=== PATIENT | male | born 1985 | race African-American/Black ===

== ENCOUNTER 2017-11-23 18:50 | Inpatient (IN) | payer OTHER ==
--- NOTE | 2017-11-23 19:43 | ED ---
Chest Pain HPI - General Chief Complaint: Chest Pain Stated Complaint: chest pain Time Seen by Provider: 11/23/17 19:33 Source: patient Mode of arrival: EMS Limitations: no limitations - History of Present Illness Initial Comments: This 31-year-old male presents with a complaint of some chest pain on his left side. He states that this feels like a burning type sensation. It is worse with touch or deep inspiration. He denies any injuries to this area. He states that this started approximately 2 hours prior to arrival. He also relates that he has some left lower abdominal pain which feels like a prior hernia which started approximately 10 hours prior to arrival. It is associated with some nausea but no vomiting or diarrhea. 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 He also states that he had a mild heart attack when he has 19 but he did not receive any cardiac stents or further intervention at that time. He presents via EMS and received 3 nitroglycerin sublingual and aspirin prior to arrival without any significant relief. No other complaints or modifying factors. - Related Data Home Medications Medication Instructions Recorded Confirmed Gabapentin [Neurontin] 300 mg PO TID 11/23/17 11/23/17 LORazepam [Ativan] 1 mg PO Q4H PRN 11/23/17 11/23/17 Allergies Allergy/AdvReac Type Severity Reaction Status Date / Time morphine Allergy Unknown Verified 11/23/17 19:09 Review of Systems ROS Statement: Those systems with pertinent positive or pertinent negative responses have been documented in the HPI. ROS Other: All systems not noted in ROS Statement are negative. Past Medical History Past Medical History: No Reported History, Myocardial Infarction ([place]) Additional Past Medical History / Comment(s): tetrology of fallot History of Any Multi-Drug Resistant Organisms: None Reported Past Surgical History: Hernia Repair Additional Past Surgical History / Comment(s): transposition of the great arteries repair, elbo surgery Past Psychological History: Depression Smoking Status: Current every day smoker Past Alcohol Use History: Daily Past Drug Use History: None Reported General Exam - General Exam Comments Initial Comments: GENERAL: The patient is well nourished and well hydrated. VITAL SIGNS: Heart rate, blood pressure, respiratory rate reviewed as recorded in nurse's notes. EYES: Pupils are round and reactive. Extraocular movements are intact. No conjunctival / lid redness or swelling. ENT: No external evidence of injury, swelling, or ecchymosis. Airway is patent. Throat is clear. NECK: Nontender. No swelling or evidence of injury. No subcutaneous emphysema. Trachea is midline. No thyroid mass. HEART: Regular rate and rhythm. Good peripheral pulses. LUNGS/CHEST: Breath sounds clear and equal bilaterally. No rales, rhonchi, or wheezes. No ecchymosis, subcutaneous emphysema. There is tenderness upon palpation of the left chest wall. ABDOMEN: There is tenderness noted to the left lower abdomen. There is no peritoneal signs. Abdomen is nondistended. No palpable masses or organomegaly. No peritoneal signs. No abdominal wall swelling or ecchymosis. EXTREMITIES: No extremity tenderness. Normal muscle tone and function. No thoracolumbar tenderness. NEUROLOGIC: Sensation is grossly intact. Cranial nerve exam reveals face is symmetrical, tongue is midline, speech is clear. SKIN: No abrasions or ecchymosis is noted. No induration or masses noted. PSYCHIATRIC: Alert and oriented. Appropriate behavior and judgment. Limitations: no limitations Course Vital Signs 11/23/17 11/23/17 11/23/17 18:51 19:35 20:26 Temperature 97.8 F Pulse Rate 89 87 83 Respiratory 18 18 18 Rate Blood Pressure 134/85 132/85 159/103 O2 Sat by Pulse 100 99 99 Oximetry 11/23/17 11/23/17 11/24/17 21:36 22:52 00:11 Temperature 98.2 F 97.2 F L Pulse Rate 78 85 84 Respiratory 18 18 18 Rate Blood Pressure 172/113 158/101 158/105 O2 Sat by Pulse 100 99 98 Oximetry Chest Pain [facility] The patient was seen and examined. All diagnostics were reviewed. The EKG shows a sinus rhythm at 85. There is a first-degree AV block. There is some T- wave inversions noted primarily in the lateral leads as well as V3. The patient has some flattened T waves as well. There is no ST elevation. The patient has a UT interval of 274, QRS duration of 112, and the QTC intervals 456. Patient received some Toradol in the ER. He also receives some Zofran for his nausea. The laboratory is reviewed. The patient also had a computed tomography scan of the abdomen and pelvis and the radiologist thinks that there is evidence of diverticulitis noted in the left lower abdomen. The patient is started on Flagyl as well as Levaquin. He also has a CT done of the thorax and this does show evidence of a 4.8 cm thoracic aortic aneurysm. There is no evidence of dissection or pulmonary embolism noted. The patient does receive some Toradol as well as some fentanyl for his pain. He is feeling somewhat improved on recheck. It is felt as though he would benefit from admission to the hospital for further evaluation of his Cardiologic symptoms and treatment of his diverticulitis. He is agreeable and case is discussed with internal medicine and they are agreeable with admission. Disposition Clinical Impression: Chest pain, Nausea, Abdominal pain, History of tetralogy of Fallot, Diverticulitis, Thoracic aortic aneurysm, Unstable angina pectoris Disposition: ADMITTED IP TO THIS HOSP Condition: Fair Time of Disposition: 00:23 Decision Date: 11/24/17 Decision Time: 00:23
[2017-11-23 20:15] LABS: Basophils % (A) 0 %; Eosinophils # (A) 0.4 k/uL (0-0.7); Eosinophils % (A) 4 %; HCT 37.1 % (39.0-53.0); HGB 12.5 gm/dL (13.0-17.5); Lymphocytes % (A) 11 %; MCH 34.4 pg (25.0-35.0); MCHC 33.8 g/dL (31.0-37.0); MCV 101.7 fL (80.0-100.0); Mean Platelet Volume 9.4; Monocytes # (A) 1.3 k/uL (0-1.0); Monocytes % (A) 13 %; Neutrophils # (A) 6.8 k/uL (1.3-7.7); Neutrophils % (A) 71 %; Platelet Count 134 k/uL (150-450); RBC 3.64 m/uL (4.30-5.90); RDW 11.9 % (11.5-15.5); WBC 9.7 k/uL (3.8-10.6)
[2017-11-23 20:17] LABS: INR 1.1 (<1.2); Partial Thromboplastin Time 27.4 sec (22.0-30.0); Prothrombin Time 10.3 sec (9.0-12.0)
[2017-11-23 20:19] LABS: ALT 62 U/L (21-72); AST 51 U/L (17-59); Albumin 3.3 g/dL (3.5-5.0); Alkaline Phosphatase 25 U/L (38-126); Anion Gap 6 mmol/L; Blood Urea Nitrogen 10 mg/dL (9-20); Calcium 7.5 mg/dL (8.4-10.2); Carbon Dioxide 23 mmol/L (22-30); Chloride 110 mmol/L (98-107); Glucose 79 mg/dL (74-99); Magnesium 1.6 mg/dL (1.6-2.3); Sodium 139 mmol/L (137-145); Total Bilirubin 0.9 mg/dL (0.2-1.3); Total Protein 5.6 g/dL (6.3-8.2)
[2017-11-23 20:52] LABS: Creatine Kinase MB 0.3 ng/mL (0.0-2.4); Troponin I 0.014 ng/mL (0.000-0.034)
[2017-11-23] MEDS ORDERED: RX INFO: IV CONTRAST WAS GIVEN 1 EACH MISC MISCELLANE PRN (21:44)
[2017-11-23] MEDS ORDERED: KETOROLAC 30 MG/ML 1 ML VIAL IVP STA (21:47)
--- NOTE | 2017-11-23 22:31 | CT ---
EXAMINATION TYPE: CT abdomen pelvis w con DATE OF EXAM: 11/23/2017 COMPARISON: NONE HISTORY: Left groin pain, history of hernias. CT DLP: 1388.2 mGycm Automated exposure control for dose reduction was used. TECHNIQUE: Helical acquisition of images was performed from the lung bases through the pelvis. CONTRAST: Performed without Oral Contrast and with IV Contrast, patient injected with 100 mL of Isovue M300. FINDINGS: Lung bases are clear. There is no pleural effusion. Heart size is normal. Liver spleen pancreas gallbladder appear normal. Bile ducts are not dilated. There is no adrenal mass . Kidneys show satisfactory contrast opacification. There is no hydronephrosis. There is no retroperi toneal adenopathy. There is no ascites. There is no sign of appendicitis. Appendix is not definitely seen. There is a small amount of fluid in the left paracolic gutter. There are diverticula in the descendin g colon with minimal wall thickening. There is also some fat stranding around the lower descending co zoraida. Bladder distends smoothly. There is a 1 cm prosthetic calcification. I see no bony destructive proces s. There is mild spurring in the lower thoracic spine. IMPRESSION: There is fluid in the left paracolic gutter with isolated diverticula in the descending colon. This i s probably acute diverticulitis in this relatively young patient. No abscess.
--- NOTE | 2017-11-23 22:34 | CT ---
EXAMINATION TYPE: CT angio chest DATE OF EXAM: 11/23/2017 10:23 PM COMPARISON: NONE HISTORY: Right sided chest pain. History of transposition of great vessels and repair. CT DLP: 332.6 mGycm Automated exposure control for dose reduction was used. CONTRAST: CTA scan of the thorax is performed with IV Contrast, patient injected with 100 mL of Isovue M300, pu lmonary embolism protocol. There are 3-D post processed images.. FINDINGS: There are large central pulmonary arteries consistent with some degree of pulmonary hypertension. Pul monary artery has origin more anterior. There is mild aneurysm of the origin of the thoracic aorta. This measures 4.8 cm in diameter. There i s no sign of dissection. I see no filling defects in the pulmonary arteries. The lungs are clear of infiltrate. There is no pleural effusion. There is no sign of a pulmonary mass . There is no mediastinal adenopathy. The bony thorax is intact. IMPRESSION: NO EVIDENCE OF PULMONARY EMBOLISM. LARGE CENTRAL PULMONARY ARTERIES SUGGESTIVE OF SOME ELEMENT OF PUL MONARY HYPERTENSION. ANEURYSM OF THE PROXIMAL ASCENDING AORTA.
[2017-11-23] MEDS ORDERED: fentaNYL (PF) 50 MCG/ML 2 ML AMP IV STA (23:41)
[2017-11-23] MEDS ORDERED: metroNIDAZOLE-NS PMX 500 MG in SALINE 1 100ML.BAG IVPB STA (23:43)
[2017-11-23] MEDS ORDERED: LEVOFLOXACIN 750MG-D5W PMX 750 MG in DEXTROSE/WATER 1 150ML.BAG IVPB STA (23:43)
[2017-11-24] MEDS ORDERED: NITROGLYCERIN SL TABS 0.4 MG TAB SUBLINGUAL PRN (00:24)
[2017-11-24] MEDS ORDERED: LORazepam 1 MG TAB PO PRN (00:28)
--- NOTE | 2017-11-24 02:26 | P.HPIM ---
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 The patient denied any trauma to his groin/pelvis, denies any swelling or redness of his testicles. Denies any associated palpitations syncope presyncope, shortness of air. The patient also reports a history of anxiety related [place], but did not receive any stenting at that time. Apparently the patient had been admitted to the [facility] for treatment of his chronic alcoholism and had been there for approximately a week. On route the patient had received 3 nitroglycerin and aspirin prior to arrival without any significant relief. In the ED had a CTA of his chest that showed no evidence of pulmonary embolism, Negative for dissection and a aneurysm of the proximal descending aorta measuring approximately 4.[address] abdomen and pelvis suggesting acute diverticulitis. The patient was started on Flagyl and Levaquin and given fentanyl and Toradol for pain and recommended for admission. EKG showed NSR with first-degree AV block with nonspecific T-wave abnormality Review of Systems All other 14 point review of systems negative except per HPI Past Medical History Past Medical History: No Reported History, Myocardial Infarction ([place]) Additional Past Medical History / Comment(s): tetrology of fallot History of Any Multi-Drug Resistant Organisms: None Reported Past Surgical History: Hernia Repair Additional Past Surgical History / Comment(s): transposition of the great arteries repair, elbo surgery Past Psychological History: Depression Smoking Status: Current every day smoker Past Alcohol Use History: Daily Past Drug Use History: None Reported Medications and Allergies Home Medications Medication Instructions Recorded Confirmed Type Gabapentin [Neurontin] 300 mg PO TID 11/23/17 11/23/17 History LORazepam [Ativan] 1 mg PO Q4H PRN 11/23/17 11/23/17 History Allergies Allergy/AdvReac Type Severity Reaction Status Date / Time morphine Allergy Unknown Verified 11/23/17 19:09 Physical Exam Vitals: Vital Signs Temp Pulse Resp BP Pulse Ox 11/24/17 00:11 97.2 F L 84 18 158/105 98 11/23/17 22:52 98.2 F 85 18 158/101 99 11/23/17 21:36 78 18 172/113 100 11/23/17 20:26 83 18 159/103 99 11/23/17 19:35 87 18 132/85 99 11/23/17 18:51 97.8 F 89 18 134/85 100 Intake and Output 11/23/17 11/23/17 11/24/17 14:59 22:59 06:59 Other: Weight 81.647 kg Constitutional: No acute distress, conversant, pleasant Eyes: Anicteric sclerae, moist conjunctiva, no lid-lag, PERRLA ENMT: NC/AT,Oropharynx clear, no erythema, exudates Neck:Supple, FROM, no masses, or JVD, No carotid bruits; No thyromegaly Lungs: Clear to auscultation, Clear to percussion, Normal respiratory effort, no accessory muscle use Cardiovascular: Heart regular in rate and rhythm, No murmurs, gallops, or rubs no peripheral edema Abdominal: Soft Nontender, nom distended, no guarding, no rebound or rigidity, Normoactive bowel sounds No hepatomegaly, No splenomegaly, No palpable mass No abdominal wall hernia noted Skin: Normal temperature, tone, texture, turgor, No induration No subcutaneous nodules, No rash, lesions, No ulcers Extremities:No digital cyanosis No clubbing, Pedal pulses intact and symmetrical Radial pulses intact and symmetrical Normal gait and station, No calf tenderness Psychiatric: Alert and oriented to person, place and time, Appropriate affect Intact judgement Neuro: Muscles Strength 5/5 in all 4 extremities, Sensation to light touch grossly present throughout, Cranial nerves II-XII grossly intact. No focal sensory deficits Results CBC & Chem 7: 11/23/17 19:35 11/23/17 19:35 Labs: Abnormal Lab Results - Last 24 Hours (Table) 11/23/17 11/23/17 Range/Units 19:35 19:35 RBC 3.64 L (4.30-5.90) m/uL Hgb 12.5 L (13.0-17.5) gm/dL Hct 37.1 L (39.0-53.0) % MCV 101.7 H (80.0-100.0) fL Plt Count 134 L (150-450) k/uL Monocytes # 1.3 H (0-1.0) k/uL Chloride 110 H (98-107) mmol/L Calcium 7.5 L (8.4-10.2) mg/dL Alkaline Phosphatase 25 L (38-126) U/L Total Protein 5.6 L (6.3-8.2) g/dL Albumin 3.3 L (3.5-5.0) g/dL Assessment and Plan (1) Chest pain Current Visit: Yes Status: Acute Code(s): R07.9 - CHEST PAIN, UNSPECIFIED SNOMED Code(s): 10407884 (2) Diverticulitis Current Visit: Yes Status: Acute Code(s): K57.92 - DVTRCLI OF INTEST, PART UNSP, W/O PERF OR ABSCESS W/O BLEED SNOMED Code(s): 018678518 (3) History of tetralogy of Fallot Current Visit: Yes Status: Acute Code(s): Z87.74 - PERSONAL HISTORY OF CONGENITAL MALFORM OF HEART AND CIRC SYS SNOMED Code(s): 963126844 (4) Thoracic aortic aneurysm Current Visit: Yes Status: Acute Code(s): I71.2 - THORACIC AORTIC ANEURYSM, WITHOUT RUPTURE SNOMED Code(s): 417562347 (5) Chronic alcoholism Current Visit: Yes Status: Acute Code(s): F10.20 - ALCOHOL DEPENDENCE, UNCOMPLICATED SNOMED Code(s): 1086606 Plan: The patient is admitted to [facility] medical floor on telemetry anticipated greater than 2 midnight stay after presenting with atypical chest pain. Given the patient's history of tetralogy of fallot and with CT evidence of a proximal ascending aortic aneurysm. We'll consult cardiology for further recommendations. Initial EKG and cardiac enzymes are suggestive of any acute ischemia. We'll continue with routine chest pain orders. Ordered 2-D echo Continue with Dilaudid for pain. We'll continue antibiotic therapy with Flagyl and Levaquin to treat the patient's acute diverticulitis, continue supportive therapy with antiemetics. Place the patient on alcohol withdrawal CIWA, protocol We'll continue to follow his clinical course
[2017-11-24 02:30] VITALS: BMI 24.4
[2017-11-24] MEDS: HYDROmorphone 2 MG TAB PO PRN ×3 (02:37→18:40)
[2017-11-24 02:50] LABS: Creatine Kinase 67 U/L (55-170)
[2017-11-24 03:00] LABS: Creatine Kinase MB 0.3 ng/mL (0.0-2.4)
[2017-11-24 03:03] LABS: Troponin I <0.012 ng/mL (0.000-0.034)
[2017-11-24] MEDS: NITROGLYCERIN OINT 1 INCH/GM PACKET TOPICAL SCH ×3 (06:09→17:26)
[2017-11-24 07:31] LABS: Creatine Kinase 69 U/L (55-170)
[2017-11-24 07:42] LABS: Creatine Kinase MB 0.3 ng/mL (0.0-2.4); Troponin I <0.012 ng/mL (0.000-0.034)
--- NOTE | 2017-11-24 08:20 | P.CRDCN ---
History of Present Illness Consult date: 11/24/17 Requesting physician: Luis Garcia Consult reason: chest pain Chief complaint: Chest pain, abdominal pain History of present illness: This is a 31-year-old gentleman with history of tetralogy of flow requiring open heart surgery at 3 days of age, nicotine dependence, EtOH abuse, questionable prior myocardial infarction, who presented to the hospital from [facility] with symptoms of midsternal chest pain which radiated to the right side of his chest. Patient also was complaining of some abdominal cramping discomfort, states he has been told to have diverticulitis in the past and states that it feels similar to that. He did have some nausea and vomiting , had some diarrhea yesterday today he states he is unable to move his bowels at all. Patient described this pain as a soreness, he did get 3 sublingual nitroglycerin en route here in the EMS, with no significant relief of pain. CTA of the chest was performed on arrival here which did not reveal evidence of a pulmonary embolism. Large central pulmonary arteries suggestive of some element of pulmonary hypertension. Aneurysm of the proximal ascending aorta 4.8 cm with no sign of dissection. The pressure on arrival here 134/80, heart rate in the 80s, afebrile, 100% on room air. White blood cell count 9.7, hemoglobin 12.5, platelet count 134. Sodium 1:30, potassium 4.0, BUN 10, creatinine 0.6. Troponins 0.014, 0.012, 0.02. EKG shows normal sinus rhythm with ST-T wave changes noted in the anterior lateral leads. CT of the abdomen and pelvis was also performed which revealed fluid in the left paracolic gutter with isolated diverticulitis in the descending colon, likely acute diverticulitis. At the time of my examination this morning, patient has mild tremors, extremely tired, continues to complain of abdominal discomfort, denies chest pain at present. Past Medical History Past Medical History: No Reported History, Myocardial Infarction ([place]) Additional Past Medical History / Comment(s): tetrology of fallot Last Myocardial Infarction Date:: 2004 History of Any Multi-Drug Resistant Organisms: None Reported Past Surgical History: Hernia Repair Additional Past Surgical History / Comment(s): transposition of the great arteries repair, elbo surgery Past Anesthesia/Blood Transfusion Reactions: Previous Problems w/ Anesthesia Additional Past Anesthesia/Blood Transfusion Reaction / Comment(s): pt. states he had problems with anesethia in the past but he is unable to state what the issue was, pt. states his mother knows Past Psychological History: Depression Smoking Status: Current every day smoker Past Alcohol Use History: Daily Past Drug Use History: None Reported - Past Family History Mother Family Medical History: Unable to Obtain Additional Family Medical History / Comment(s): pt. does not know his biological mother Father Family Medical History: Diabetes Mellitus, Liver Disease Additional Family Medical History / Comment(s): hepatitis C, kidney stones. pt. states his uncles on his father's side have a history of cancer as well Medications and Allergies Home Medications Medication Instructions Recorded Confirmed Type Gabapentin [Neurontin] 300 mg PO TID 11/23/17 11/23/17 History LORazepam [Ativan] 1 mg PO Q4H PRN 11/23/17 11/23/17 History Allergies Allergy/AdvReac Type Severity Reaction Status Date / Time apple Allergy Anaphylaxis Verified 11/24/17 02:10 morphine Allergy Unknown Verified 11/23/17 19:09 strawberry Allergy Anaphylaxis Verified 11/24/17 02:10 Physical Exam Vitals: Vital Signs Temp Pulse Pulse Resp BP BP Pulse Ox 11/24/17 04:47 98.8 F 84 18 136/95 98 11/24/17 01:10 84 18 11/24/17 01:00 98.1 F 81 18 153/100 98 11/24/17 00:11 97.2 F L 84 18 158/105 98 11/23/17 22:52 98.2 F 85 18 158/101 99 11/23/17 21:36 78 18 172/113 100 11/23/17 20:26 83 18 159/103 99 11/23/17 19:35 87 18 132/85 99 11/23/17 18:51 97.8 F 89 18 134/85 100 Intake and Output 11/23/17 11/24/17 11/24/17 22:59 06:59 14:59 Intake Total 830 Balance 830 Intake: IV 100 0.9 100 Intake, IV Titration 250 Amount Levofloxacin 750Mg-D5w 150 Pmx 750 mg In Dextrose/ Water 1 150ml.bag @ 100 mls/hr IVPB DAILY [facility] Rx# :[id number] metroNIDAZOLE-NS PMX 500 100 mg In Saline 1 100ml.bag @ 100 mls/hr IVPB QID [facility] Rx#:[id number] Oral 480 Other: Voiding Method Toilet # Voids 1 Weight 81.647 kg 82 kg PHYSICAL EXAMINATION: HEENT: Head is atraumatic, normocephalic. Pupils equal, round. Neck is supple. There is no elevated jugular venous pressure. HEART EXAMINATION: Heart S1 and S2 systolic murmur is heard. CHEST EXAMINATION: Lungs reveal decreased air exchange with scattered wheezing throughout. ABDOMEN: Soft, positive generalized tenderness throughout nontender. Bowel sounds are heard. No organomegaly noted. EXTREMITIES: 2+ peripheral pulses with no evidence of peripheral edema and no calf tenderness noted. NEUROLOGIC patient is awake, alert and oriented -3. . Results 11/23/17 19:35 11/23/17 19:35 Cardiac Enzymes 11/23/17 11/23/17 11/24/17 Range/Units 19:35 19:35 01:43 AST 51 (17-59) U/L CK-MB (CK-2) 0.3 0.3 (0.0-2.4) ng/mL Troponin I 0.014 <0.012 (0.000-0.034) ng/mL 11/24/17 Range/Units 06:30 AST (17-59) U/L CK-MB (CK-2) 0.3 (0.0-2.4) ng/mL Troponin I <0.012 (0.000-0.034) ng/mL Coagulation 11/23/17 Range/Units 19:35 PT 10.3 (9.0-12.0) sec APTT 27.4 (22.0-30.0) sec CBC 11/23/17 Range/Units 19:35 WBC 9.7 (3.8-10.6) k/uL RBC 3.64 L (4.30-5.90) m/uL Hgb 12.5 L (13.0-17.5) gm/dL Hct 37.1 L (39.0-53.0) % Plt Count 134 L (150-450) k/uL Comprehensive Metabolic Panel 11/23/17 Range/Units 19:35 Sodium 139 (137-145) mmol/L Potassium 4.0 (3.5-5.1) mmol/L Chloride 110 H (98-107) mmol/L Carbon Dioxide 23 (22-30) mmol/L BUN 10 (9-20) mg/dL Creatinine 0.66 (0.66-1.25) mg/dL Glucose 79 (74-99) mg/dL Calcium 7.5 L (8.4-10.2) mg/dL AST 51 (17-59) U/L ALT 62 (21-72) U/L Alkaline Phosphatase 25 L (38-126) U/L Total Protein 5.6 L (6.3-8.2) g/dL Albumin 3.3 L (3.5-5.0) g/dL Current Medications Generic Name Dose Route Start Last Admin Trade Name Freq PRN Reason Stop Dose Admin Acetaminophen 1,000 mg 11/24/17 00:28 Tylenol Tab PO QID PRN Pain Aspirin 325 mg 11/25/17 09:00 Aspirin PO DAILY [facility] Enoxaparin Sodium 40 mg 11/24/17 09:00 Lovenox SQ DAILY [facility] Gabapentin 300 mg 11/24/17 09:00 Neurontin PO TID [facility] Hydromorphone HCl 2 mg 11/24/17 02:29 11/24/17 02:37 Dilaudid PO 2 mg Q8HR PRN Administration Pain Scale 7 to 10 Levofloxacin 750 mg/ IV 150 mls @ 100 mls/hr 11/24/17 09:00 Solution IVPB DAILY [facility] Metronidazole 500 mg/ IV 100 mls @ 100 mls/hr 11/24/17 09:00 Solution IVPB QID [facility] Lorazepam 1 mg 11/24/17 00:28 Ativan PO Q4H PRN Anxiety Metoprolol Tartrate 25 mg 11/24/17 09:00 Lopressor PO BID [facility] Miscellaneous Information 1 each 11/23/17 21:44 11/23/17 21:50 Rx Info: Iv Contrast Was Given MISCELLANE 11/25/17 21:44 1 each DAILY PRN Administration Per Protocol Nitroglycerin 1 inch 11/24/17 06:00 11/24/17 06:09 Nitro-Bid Oint TOPICAL Not Given Q6HR [facility] Nitroglycerin 0.4 mg 11/24/17 00:24 Nitrostat SUBLINGUAL Q5M PRN Chest Pain Intake and Output 11/23/17 11/24/17 11/24/17 22:59 06:59 14:59 Intake Total 830 Balance 830 Intake: IV 100 0.9 100 Intake, IV Titration 250 Amount Levofloxacin 750Mg-D5w 150 Pmx 750 mg In Dextrose/ Water 1 150ml.bag @ 100 mls/hr IVPB DAILY [facility] Rx# :[id number] metroNIDAZOLE-NS PMX 500 100 mg In Saline 1 100ml.bag @ 100 mls/hr IVPB QID [facility] Rx#:[id number] Oral 480 Other: Voiding Method Toilet # Voids 1 Weight 81.647 kg 82 kg 11/23/17 19:35 11/23/17 19:35 EKG Interpretations (text) EKG shows a normal sinus rhythm with ST-T wave changes in the anterior lateral leads. Assessment and Plan Plan: Assessment and plan #1 chest discomfort, with some atypical features for acute coronary syndrome. EKG shows normal sinus rhythm with ST-T wave changes in the anterior lateral leads. Troponins 0.014, 0.012, 0.012. CTA of the chest was negative for PE, proximal abdominal aortic aneurysm measuring 4.8 cm in diameter, no sign of dissection #2 abdominal discomfort, CT of the abdomen reveals it appears to be acute diverticulitis. #3 nicotine dependence #4 history of tetralogy of flow with open heart surgery performed at 3 days of age #5 EtOH abuse Plan Will obtain an echocardiogram with Doppler study. Once the patient's abdominal discomfort resolves, we would recommend he undergo a stress test for definitive diagnosis. We will obtain a fasting lipid profile. Further recommendations to follow. DNP note has been reviewed, I agree with a documented findings and plan of care. Patient was seen and examined.
[2017-11-24] MEDS: metroNIDAZOLE-NS PMX 500 MG in SALINE 1 100ML.BAG IVPB SCH ×4 (08:46→21:20)
[2017-11-24] MEDS: GABAPENTIN 300 MG CAP PO SCH ×3 (08:49→21:20)
[2017-11-24] MEDS: METOPROLOL TARTRATE 25 MG TAB PO SCH ×2 (08:49→21:20)
[2017-11-24] MEDS: ENOXAPARIN 40 MG/0.4 ML SYRINGE SQ SCH (08:49)
[2017-11-24] MEDS: LEVOFLOXACIN 750MG-D5W PMX 750 MG in DEXTROSE/WATER 1 150ML.BAG IVPB SCH (10:23)
--- NOTE | 2017-11-24 14:33 | P.PN ---
Progress Note - Text Progress Note Date: 11/24/17 Patient was seen and examined today, family updated I called patient mother Shruthi upon patient request and update her. request records from [facility] Continue current therapy Discussed with cardiology plan of care, will obtain 2-D echocardiogram now once patient is stable and infection is controlled the plan is to perform a stress test
--- NOTE | 2017-11-24 14:49 | P.PN ---
Subjective Progress Note Date: 11/24/17 Principal diagnosis: Patient seen and examined in follow-up of acute diverticulitis, thoracic aortic aneurysm, and atypical chest pain Patient was seen and examined today, family updated I called patient mother Shruthi upon patient request and update her. Patient still complains of left lower quadrant abdominal pain denies any nausea and vomiting at this point he has any fevers or chills. Denies any chest pain today. Objective - Vital Signs Vital signs: Vital Signs Temp 97.7 F 11/24/17 11:36 Pulse 89 11/24/17 11:36 Resp 20 11/24/17 11:36 BP 152/76 11/24/17 11:36 Pulse Ox 97 11/24/17 11:36 Intake & Output 11/23/17 11/24/17 11/24/17 18:59 06:59 18:59 Intake Total 830 770 Balance 830 770 Weight 81.647 kg 82 kg Intake: IV 100 160 0.9 100 160 Intake, IV Titration 250 350 Amount Levofloxacin 750Mg-D5w 150 150 Pmx 750 mg In Dextrose/ Water 1 150ml.bag @ 100 mls/hr IVPB DAILY [facility] Rx# :[id number] metroNIDAZOLE-NS PMX 500 100 200 mg In Saline 1 100ml.bag @ 100 mls/hr IVPB QID [facility] Rx#:[id number] Oral 480 260 Other: Voiding Method Toilet # Voids 1 - Exam Constitutional: vital signs stable, Not in acute distress, pleasant, conversant Lungs: Clear to auscultation bilaterally, clear to percussion, normal respiratory effort no use of accessory muscles Cardiovascular: Regular rate and rhythm, no murmurs, no gallops, no rubs, no peripheral edema Gastrointestinal: Soft, tenderness to palpation over left lower quadrant of the abdomen, no rebound tenderness no rigidity, no palpable hepatosplenomegally , bowel sounds positive, no abdominal wall hernias Extremities: No digital cyanosis or clubbing, peripheral pulses palpable and equal over bilateral radial arteries and dorsalis pedis artery, no calf muscle tenderness Psych: Alert, oriented to place, person and time, appropriate affect, intact judgment Neuro: Cranial nerves II-XII grossly intact, no focal sensory deficits to touch - Labs CBC & Chem 7: 11/23/17 19:35 11/23/17 19:35 Labs: Abnormal Lab Results - Last 24 Hours (Table) 11/23/17 11/23/17 Range/Units 19:35 19:35 RBC 3.64 L (4.30-5.90) m/uL Hgb 12.5 L (13.0-17.5) gm/dL Hct 37.1 L (39.0-53.0) % MCV 101.7 H (80.0-100.0) fL Plt Count 134 L (150-450) k/uL Monocytes # 1.3 H (0-1.0) k/uL Chloride 110 H (98-107) mmol/L Calcium 7.5 L (8.4-10.2) mg/dL Alkaline Phosphatase 25 L (38-126) U/L Total Protein 5.6 L (6.3-8.2) g/dL Albumin 3.3 L (3.5-5.0) g/dL Assessment and Plan Assessment: 31-year-old male presented with sudden onset chest pain of atypical features, with history of tetralogy of fallot, further workup in the ED revealed acute diverticulitis and ascending thoracic aortic aneurysm Plan: #Acute diverticulitis Supportive care IV antibiotics Blood cultures negative to date Pain control with Dilaudid IV fluid hydration with normal saline Nothing by mouth Afebrile No leukocytosis #Atypical chest pain #Ascending thoracic aortic aneurysm, no evidence of dissection Cardiology on board Pending 2-D echocardiogram of the heart Cardiology planning on obtaining a stress test once acute diverticulitis is under control Pain control and supportive care Obtain records from [facility], family reported that aneurysm was reported past #DVT prophylaxis on Lovenox #History of tetralogy of fallot #History of alcohol abuse Monitor for withdrawal Benzos when necessary
[2017-11-24] MEDS: SODIUM CHLORIDE 0.9% 1,000 ML IV SCH (15:53)
--- NOTE | 2017-11-24 19:15 | ECHOF ---
Referral Reason:cp MEASUREMENTS -------- HEIGHT: 182.9 cm WEIGHT: 81.6 kg BP: 136/95 RVIDd: 2.4 cm (< 3.3) IVSd: 0.9 cm (0.6 - 1.1) LVIDd: 5.1 cm (3.9 - 5.3) LVPWd: 1.0 cm (0.6 - 1.1) IVSs: 1.5 cm LVIDs: 3.0 cm LVPWs: 1.4 cm Ao Diam: 4.5 cm (2.0 - 3.7) EPSS: 0.4 cm MV E Cruz: 0.86 m/s MV DecT: 286 ms MV A Cruz: 0.67 m/s MV E/A Ratio: 1.28 RAP: 5.00 mmHg RVSP: 9.80 mmHg MV EF SLOPE: 179.90 mm/s (70 - 150) MV EXCURSION: 2.34 cm (> 18.000) FINDINGS -------- Sinus rhythm. This was a technically adequate study. The left ventricular size is normal. Left ventricular wall thickness is normal. Overall left vent ricular systolic function is normal with, an EF between 55 - 60 %. The right ventricle is normal in size and function. Normal LA size by volume 22+/-6 ml/m2. The right atrium is normal in size. The aortic valve is trileaflet, and appears structurally normal. No aortic stenosis or regurgitation. Aortic valve is trileaflet and is mildly thickened. There is no evidence of aortic regurgitation . There is no evidence of aortic stenosis. The mitral valve leaflets are mildly thickened. There is trace to mild mitral regurgitation. Trace tricuspid regurgitation present. Right ventricular systolic pressure is normal at < 35 mmHg. There is no evidence of pulmonary hypertension. The pulmonic valve was not well visualized. The aortic root is mildy dilated up to 4.2 cm. Normal inferior vena cava with normal inspiratory collapse consistent with estimated right atrial pre ssure of 5 mmHg. There is no pericardial effusion. CONCLUSIONS -------- 1. Sinus rhythm. 2. This was a technically adequate study. 3. The left ventricular size is normal. 4. Left ventricular wall thickness is normal. 5. Overall left ventricular systolic function is normal with, an EF between 55 - 60 %. 6. Normal LA size by volume 22+/-6 ml/m2. 7. Aortic valve is trileaflet and is mildly thickened. 8. The mitral valve leaflets are mildly thickened. 9. There is trace to mild mitral regurgitation. 10. Trace tricuspid regurgitation present. 11. Right ventricular systolic pressure is normal at < 35 mmHg. 12. There is no evidence of pulmonary hypertension. 13. The pulmonic valve was not well visualized. 14. The aortic root is mildy dilated up to 4.2 cm. 15. There is no pericardial effusion. BODY SPECIALIST: Tyrell Jara RDCS
[2017-11-25] MEDS: NITROGLYCERIN OINT 1 INCH/GM PACKET TOPICAL SCH ×3 (02:07→10:54)
[2017-11-25] MEDS: HYDROmorphone 2 MG TAB PO PRN (04:19)
[2017-11-25] MEDS: SODIUM CHLORIDE 0.9% 1,000 ML IV SCH ×3 (04:20→15:59)
[2017-11-25] MEDS: ACETAMINOPHEN TAB 500 MG TAB PO PRN ×2 (05:19→13:26)
[2017-11-25 06:44] LABS: Basophils % (A) 0 %; Eosinophils # (A) 0.1 k/uL (0-0.7); Eosinophils % (A) 1 %; HCT 43.6 % (39.0-53.0); HGB 15.3 gm/dL (13.0-17.5); Lymphocytes # (A) 1.1 k/uL (1.0-4.8); Lymphocytes % (A) 9 %; MCH 34.5 pg (25.0-35.0); MCV 98.5 fL (80.0-100.0); Mean Platelet Volume 8.4; Monocytes # (A) 1.6 k/uL (0-1.0); Monocytes % (A) 14 %; Neutrophils # (A) 8.3 k/uL (1.3-7.7); Neutrophils % (A) 73 %; Platelet Count 191 k/uL (150-450); RBC 4.42 m/uL (4.30-5.90); RDW 11.5 % (11.5-15.5); WBC 11.4 k/uL (3.8-10.6)
[2017-11-25 07:03] LABS: Anion Gap 13 mmol/L; Blood Urea Nitrogen 7 mg/dL (9-20); Calcium 9.9 mg/dL (8.4-10.2); Carbon Dioxide 22 mmol/L (22-30); Chloride 100 mmol/L (98-107); Cholesterol 141 mg/dL (<200); Glucose 99 mg/dL (74-99); HDL Cholesterol 81 mg/dL (40-60); LDL Cholesterol,Calculated 50 mg/dL (0-99); Potassium 4.1 mmol/L (3.5-5.1); Sodium 135 mmol/L (137-145); Triglycerides 49 mg/dL (<150)
[2017-11-25] MEDS ORDERED: DOBUTamine DRIP for NUC MED 250 MG in DEXTROSE/WATER 1 250ML.BAG IV ONE (07:57)
[2017-11-25] MEDS: metroNIDAZOLE-NS PMX 500 MG in SALINE 1 100ML.BAG IVPB SCH ×4 (08:46→21:14)
[2017-11-25] MEDS ORDERED: ASPIRIN 325 MG TAB PO SCH (09:00)
[2017-11-25] MEDS: METOPROLOL TARTRATE 25 MG TAB PO SCH ×2 (09:43→20:28)
[2017-11-25] MEDS: ENOXAPARIN 40 MG/0.4 ML SYRINGE SQ SCH (09:43)
[2017-11-25] MEDS: GABAPENTIN 300 MG CAP PO SCH ×3 (09:43→20:28)
[2017-11-25] MEDS: LEVOFLOXACIN 750MG-D5W PMX 750 MG in DEXTROSE/WATER 1 150ML.BAG IVPB SCH (09:43)
--- NOTE | 2017-11-25 12:19 | P.PN ---
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 Patient also was complaining of some abdominal cramping discomfort, states he has been told to have diverticulitis in the past and states that it feels similar to that. He did have some nausea and vomiting , had some diarrhea yesterday today he states he is unable to move his bowels at all. Patient described this pain as a soreness, he did get 3 sublingual nitroglycerin en route here in the EMS, with no significant relief of pain. CTA of the chest was performed on arrival here which did not reveal evidence of a pulmonary embolism. Large central pulmonary arteries suggestive of some element of pulmonary hypertension. Aneurysm of the proximal ascending aorta 4.8 cm with no sign of dissection. The pressure on arrival here 134/80, heart rate in the 80s, afebrile, 100% on room air. White blood cell count 9.7, hemoglobin 12.5, platelet count 134. Sodium 1:30, potassium 4.0, BUN 10, creatinine 0.6. Troponins 0.014, 0.012, 0.02. EKG shows normal sinus rhythm with ST-T wave changes noted in the anterior lateral leads. CT of the abdomen and pelvis was also performed which revealed fluid in the left paracolic gutter with isolated diverticulitis in the descending colon, likely acute diverticulitis. At the time of my examination this morning, patient has mild tremors, extremely tired, continues to complain of abdominal discomfort, denies chest pain at present. 11/25/2017 Patient seen and examined this morning, no further abdominal discomfort, denies any chest pain. Blood pressure 136/78, heart rate in the 90s. Echocardiogram with Doppler study revealed a normal ejection fraction. Objective - Vital Signs Vital signs: Vital Signs Temp 97.6 F 11/25/17 08:00 Pulse 101 H 11/25/17 08:00 Resp 17 11/25/17 08:00 BP 140/70 11/25/17 08:00 Pulse Ox 95 11/25/17 08:00 Intake & Output 11/24/17 11/25/17 11/25/17 18:59 06:59 18:59 Intake Total 770 975 240 Balance 770 975 240 Weight 87.8 kg Intake: IV 160 0.9 160 Intake, IV Titration 350 375 Amount Levofloxacin 750Mg-D5w 150 Pmx 750 mg In Dextrose/ Water 1 150ml.bag @ 100 mls/hr IVPB DAILY [facility] Rx# :[id number] Sodium Chloride 0.9% 1, 375 000 ml @ 125 mls/hr IV . Q8H [facility] Rx#:[id number] metroNIDAZOLE-NS PMX 500 200 mg In Saline 1 100ml.bag @ 100 mls/hr IVPB QID [facility] Rx#:[id number] Oral 260 600 240 Other: Voiding Method Toilet Toilet # Voids 2 - Exam PHYSICAL EXAMINATION: HEENT: Head is atraumatic, normocephalic. Pupils equal, round. Neck is supple. There is no elevated jugular venous pressure. HEART EXAMINATION: Heart S1, S2 normal. No murmur or gallop heard. CHEST EXAMINATION: Lungs reveal mild wheezing throughout. ABDOMEN: Soft, nontender. Bowel sounds are heard. No organomegaly noted. EXTREMITIES: 2+ peripheral pulses with no evidence of peripheral edema and no calf tenderness noted. NEUROLOGIC patient is awake, alert and oriented -3. . - Labs CBC & Chem 7: 11/25/17 06:19 11/25/17 06:19 Labs: Abnormal Lab Results - Last 24 Hours (Table) 11/25/17 11/25/17 Range/Units 06:19 06:19 WBC 11.4 H (3.8-10.6) k/uL Neutrophils # 8.3 H (1.3-7.7) k/uL Monocytes # 1.6 H (0-1.0) k/uL Sodium 135 L (137-145) mmol/L BUN 7 L (9-20) mg/dL HDL Cholesterol 81 H (40-60) mg/dL Microbiology - Last 24 Hours (Table) 11/24/17 00:50 Blood Culture - Preliminary Blood No Growth after 24 hours Assessment and Plan Plan: Assessment and plan #1 chest discomfort, with some atypical features for acute coronary syndrome. EKG shows normal sinus rhythm with ST-T wave changes in the anterior lateral leads. Troponins 0.014, 0.012, 0.012. CTA of the chest was negative for PE, proximal abdominal aortic aneurysm measuring 4.8 cm in diameter, no sign of dissection #2 abdominal discomfort, CT of the abdomen reveals it appears to be acute diverticulitis. #3 nicotine dependence #4 history of tetralogy of flow with open heart surgery performed at 3 days of age #5 EtOH abuse Plan Echocardiogram with Doppler study was performed which revealed an ejection fraction of 55-60%. From cardiology's perspective, the patient may be able to be discharged home, he was recommended by Dr. Gamble to follow-up with an adult congenital heart disease team at [facility]. DNP note has been reviewed, I agree with a documented findings and plan of care. Patient was seen and examined.
--- NOTE | 2017-11-25 16:43 | P.PN ---
Subjective Progress Note Date: 11/25/17 Principal diagnosis: Patient seen and examined in follow-up of acute diverticulitis Patient was seen and examined today, family updated again, I spoke with patient and mother regarding cardiology of days. I also gave her regarding his condition of acute diverticulitis. Patient is tolerating clear liquid diet reports some abdominal pain that's improving overall. He still didn't pass a bowel movement. Otherwise he denies any chest pain or trouble breathing denies any fevers or chills. Objective - Vital Signs Vital signs: Vital Signs Temp 97.6 F 11/25/17 08:00 Pulse 101 H 11/25/17 08:00 Resp 17 11/25/17 08:00 BP 140/70 11/25/17 08:00 Pulse Ox 95 11/25/17 08:00 Intake & Output 11/24/17 11/25/17 11/25/17 18:59 06:59 18:59 Intake Total 770 975 240 Balance 770 975 240 Weight 87.8 kg Intake: IV 160 0.9 160 Intake, IV Titration 350 375 Amount Levofloxacin 750Mg-D5w 150 Pmx 750 mg In Dextrose/ Water 1 150ml.bag @ 100 mls/hr IVPB DAILY [facility] Rx# :[id number] Sodium Chloride 0.9% 1, 375 000 ml @ 125 mls/hr IV . [facility] Rx#:[id number] metroNIDAZOLE-NS PMX 500 200 mg In Saline 1 100ml.bag @ 100 mls/hr IVPB QID [facility] Rx#:[id number] Oral 260 600 240 Other: Voiding Method Toilet # Voids 2 - Exam Constitutional: vital signs stable, Not in acute distress, pleasant, conversant Lungs: Clear to auscultation bilaterally, clear to percussion, normal respiratory effort Cardiovascular: Regular rate and rhythm, no murmurs, no gallops, no rubs, no peripheral edema Gastrointestinal: Soft, tenderness to palpation over left lower quadrant of the abdomen with voluntary guarding, no rebound tenderness no rigidity, no palpable hepatosplenomegally, bowel sounds positive Extremities: No digital cyanosis, peripheral pulses palpable and equal over bilateral radial arteries and dorsalis pedis artery, no calf muscle tenderness Psych: Alert, oriented to place, person and time, appropriate affect, intact judgment - Labs CBC & Chem 7: 11/25/17 06:19 11/25/17 06:19 Labs: Abnormal Lab Results - Last 24 Hours (Table) 11/25/17 11/25/17 Range/Units 06:19 06:19 WBC 11.4 H (3.8-10.6) k/uL Neutrophils # 8.3 H (1.3-7.7) k/uL Monocytes # 1.6 H (0-1.0) k/uL Sodium 135 L (137-145) mmol/L BUN 7 L (9-20) mg/dL HDL Cholesterol 81 H (40-60) mg/dL Microbiology - Last 24 Hours (Table) 11/24/17 00:50 Blood Culture - Preliminary Blood No Growth after 24 hours Assessment and Plan Assessment: 31-year-old male presented with sudden onset chest pain of atypical features, with history of tetralogy of fallot, further workup in the ED revealed acute diverticulitis and ascending thoracic aortic aneurysm. Cardiology evaluated the patient and echocardiogram showed preserved ejection fraction left ventricle the range of 55-60%. With aortic root palpation of 4.2 cm. Cardiology cleared the patient from their standpoint for discharge recommended follow-up outpatient with adult congenital heart disease clinic. Patient and family verbalized agreement. Still waiting for records from [facility] regarding prior workup for his possible history of thoracic ascending aortic aneurysm. In regard of acute diverticulitis, patient continues to be afebrile continues to receive IV antibiotic. He is tolerating by mouth intake with liquid diet. He did not pass a bowel movement yet. We will monitor the patient for one more day and advance his diet to regular if tolerates that he will be discharged in the morning. Patient and family agrees with this plan Plan: #Acute diverticulitis Supportive care IV antibiotics, will switch him to oral antibiotics upon discharge to finish a ten-day course Blood cultures negative to date Pain control with Dilaudid, this will be switched to by mouth [place] IV fluid hydration with normal saline Advance diet as tolerated Afebrile No leukocytosis Possible discharge in the morning. I discussed with the patient to consider outpatient colonoscopy. This should be discussed with his PCP #Atypical chest pain #Ascending thoracic aortic aneurysm, no evidence of dissection Cardiology on board Echocardiogram resulted as above. Cardiology cleared the patient for discharge, recommended outpatient follow-up with adult congenital heart disease clinic. We'll obtain records from [facility] for prior workup of his thoracic ascending aortic aneurysm #DVT prophylaxis on Lovenox #History of tetralogy of fallot #History of alcohol abuse Monitor for withdrawal Benzos when necessary Possible discharge in the morning
[2017-11-25] MEDS: HYDROcodone/APAP 5-325MG 1 EACH TAB PO PRN (20:28)
[2017-11-26] MEDS: HYDROcodone/APAP 5-325MG 1 EACH TAB PO PRN ×2 (03:04→09:48)
[2017-11-26] MEDS: SODIUM CHLORIDE 0.9% 1,000 ML IV SCH ×2 (03:07→05:37)
[2017-11-26 06:00] LABS: Basophils % (A) 0 %; Eosinophils # (A) 0.2 k/uL (0-0.7); Eosinophils % (A) 2 %; HCT 40.5 % (39.0-53.0); HGB 14.5 gm/dL (13.0-17.5); Lymphocytes # (A) 1.1 k/uL (1.0-4.8); Lymphocytes % (A) 10 %; MCH 34.8 pg (25.0-35.0); MCHC 35.9 g/dL (31.0-37.0); MCV 96.9 fL (80.0-100.0); Mean Platelet Volume 8.9; Monocytes # (A) 1.5 k/uL (0-1.0); Monocytes % (A) 14 %; Neutrophils # (A) 7.3 k/uL (1.3-7.7); Neutrophils % (A) 70 %; Platelet Count 195 k/uL (150-450); RBC 4.18 m/uL (4.30-5.90); RDW 11.3 % (11.5-15.5); WBC 10.4 k/uL (3.8-10.6)
[2017-11-26 06:11] LABS: Anion Gap 12 mmol/L; Blood Urea Nitrogen 5 mg/dL (9-20); Calcium 9.3 mg/dL (8.4-10.2); Carbon Dioxide 21 mmol/L (22-30); Chloride 103 mmol/L (98-107); Glucose 100 mg/dL (74-99); Potassium 3.8 mmol/L (3.5-5.1); Sodium 136 mmol/L (137-145)
[2017-11-26 08:13] VITALS: PULSE 75; TEMP 97.7
[2017-11-26] MEDS: metroNIDAZOLE-NS PMX 500 MG in SALINE 1 100ML.BAG IVPB SCH (08:20)
[2017-11-26] MEDS: GABAPENTIN 300 MG CAP PO SCH (08:21)
[2017-11-26] MEDS: METOPROLOL TARTRATE 25 MG TAB PO SCH (08:21)
[2017-11-26] MEDS ORDERED: ASPIRIN 81 MG PO SCH (09:00)
[2017-11-26] MEDS: LEVOFLOXACIN 750MG-D5W PMX 750 MG in DEXTROSE/WATER 1 150ML.BAG IVPB SCH ×2 (09:53→09:56)
[2017-11-26 11:45] VITALS: BP 110/62; RESP 16
--- NOTE | 2017-11-26 12:20 | P.PN ---
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 Patient also was complaining of some abdominal cramping discomfort, states he has been told to have diverticulitis in the past and states that it feels similar to that. He did have some nausea and vomiting , had some diarrhea yesterday today he states he is unable to move his bowels at all. Patient described this pain as a soreness, he did get 3 sublingual nitroglycerin en route here in the EMS, with no significant relief of pain. CTA of the chest was performed on arrival here which did not reveal evidence of a pulmonary embolism. Large central pulmonary arteries suggestive of some element of pulmonary hypertension. Aneurysm of the proximal ascending aorta 4.8 cm with no sign of dissection. The pressure on arrival here 134/80, heart rate in the 80s, afebrile, 100% on room air. White blood cell count 9.7, hemoglobin 12.5, platelet count 134. Sodium 1:30, potassium 4.0, BUN 10, creatinine 0.6. Troponins 0.014, 0.012, 0.02. EKG shows normal sinus rhythm with ST-T wave changes noted in the anterior lateral leads. CT of the abdomen and pelvis was also performed which revealed fluid in the left paracolic gutter with isolated diverticulitis in the descending colon, likely acute diverticulitis. At the time of my examination this morning, patient has mild tremors, extremely tired, continues to complain of abdominal discomfort, denies chest pain at present. 11/25/2017 Patient seen and examined this morning, no further abdominal discomfort, denies any chest pain. Blood pressure 136/78, heart rate in the 90s. Echocardiogram with Doppler study revealed a normal ejection fraction. 11/26/2017 Patient seen and examined this morning, doing well overall, from cardiology's perspective, he is stable to be discharged, the recommendation we gave him yesterday is to follow-up with an adult congenital a instructional technology coach. Objective - Vital Signs Vital signs: Vital Signs Temp 97.7 F 11/26/17 08:00 Pulse 75 11/26/17 11:44 Resp 16 11/26/17 11:44 BP 110/62 11/26/17 11:44 Pulse Ox 98 11/26/17 11:44 Intake & Output 11/25/17 11/26/17 11/26/17 18:59 06:59 18:59 Intake Total 1720 360 360 Balance 1720 360 360 Weight 84.9 kg Intake: Intake, IV Titration 1100 Amount Levofloxacin 750Mg-D5w 150 Pmx 750 mg In Dextrose/ Water 1 150ml.bag @ 100 mls/hr IVPB DAILY [facility] Rx# :[id number] Sodium Chloride 0.9% 1, 750 000 ml @ 125 mls/hr IV . Q8H [facility] Rx#:[id number] metroNIDAZOLE-NS PMX 500 200 mg In Saline 1 100ml.bag @ 100 mls/hr IVPB QID [facility] Rx#:[id number] Oral 620 360 360 Other: Voiding Method Toilet Toilet Toilet # Voids 1 - Exam PHYSICAL EXAMINATION: HEENT: Head is atraumatic, normocephalic. Pupils equal, round. Neck is supple. There is no elevated jugular venous pressure. HEART EXAMINATION: Heart S1, S2 normal. No murmur or gallop heard. CHEST EXAMINATION: Lungs reveal mild wheezing throughout. ABDOMEN: Soft, nontender. Bowel sounds are heard. No organomegaly noted. EXTREMITIES: 2+ peripheral pulses with no evidence of peripheral edema and no calf tenderness noted. NEUROLOGIC patient is awake, alert and oriented -3. . - Labs CBC & Chem 7: 11/26/17 05:29 11/26/17 05:29 Labs: Abnormal Lab Results - Last 24 Hours (Table) 11/26/17 11/26/17 Range/Units 05:29 05:29 RBC 4.18 L (4.30-5.90) m/uL RDW 11.3 L (11.5-15.5) % Monocytes # 1.5 H (0-1.0) k/uL Sodium 136 L (137-145) mmol/L Carbon Dioxide 21 L (22-30) mmol/L BUN 5 L (9-20) mg/dL Creatinine 0.60 L (0.66-1.25) mg/dL Glucose 100 H (74-99) mg/dL Microbiology - Last 24 Hours (Table) 11/24/17 00:50 Blood Culture - Preliminary Blood No Growth after 48 hours Assessment and Plan Plan: Assessment and plan #1 chest discomfort, with some atypical features for acute coronary syndrome. EKG shows normal sinus rhythm with ST-T wave changes in the anterior lateral leads. Troponins 0.014, 0.012, 0.012. CTA of the chest was negative for PE, proximal abdominal aortic aneurysm measuring 4.8 cm in diameter, no sign of dissection #2 abdominal discomfort, CT of the abdomen reveals it appears to be acute diverticulitis. 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 Gamble to follow-up with an adult congenital heart disease team at [facility]. DNP note has been reviewed, I agree with a documented findings and plan of care. Patient was seen and examined.
[2017-11-26] MEDS ORDERED: metroNIDAZOLE 500 MG TAB PO SCH (13:00)
--- NOTE | 2017-11-26 15:29 | P.DS ---
Providers Date of admission: 11/24/17 00:29 Expected date of discharge: 11/26/17 Attending physician: Luis Garcia MD Consults: 11/24/17 00:24 Consult Physician Urgent Consulting Provider: Yi Cooney Consult Reason/Comments: cp, aneurysm Do you want consulting provider notified?: Yes Primary care physician: Stated None Hospital Course: Final diagnosis at discharge #Acute diverticulitis #Thoracic ascending aortic aneurysm of 4.8 cm Secondary diagnoses #History of transposition of great arteries #Seizures #Hypertension 31-year-old male presented with sudden onset chest pain of atypical features, with history of , 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 Cardiology evaluated the patient and echocardiogram showed preserved ejection fraction left ventricle the range of 55 -60%. With aortic root dilation of 4.2 cm. initial CAT scan of the chest upon presentation suggested thoracic ascending aortic aneurysm Cardiology cleared the patient from their standpoint for discharge recommended follow-up outpatient with adult congenital heart disease clinic. Patient and family verbalized agreement. I received records from [facility] but did not include any prior CAT scans of the chest for comparison. In regard of acute diverticulitis, patient showed good response to IV antibiotics, currently he is afebrile tolerating regular diet, pass bowel movement 4 times, abdominal pain is minimal. Patient will be switched upon discharge to by mouth antibiotics to finish a 14 day course. I recommended the patient to consider colonoscopy for weeks after discharge for further evaluation. Patient also have history of alcohol abuse where he was at [facility] for alcohol detox, he is not willing to go back to this facility at this time. Patient was counseled regarding abstaining from alcohol. Also counseled to quit smoking and smoke exposure, and keep monitoring his blood pressure to keep it under control. Patient was seen and examined on day of discharge, tolerating by mouth intake, pass bowel movement. Feels very comfortable abdominal pain is minimal eager to go home. Constitutional: vital signs stable, Not in acute distress, pleasant, conversant Lungs: Clear to auscultation bilaterally, clear to percussion Cardiovascular: Regular rate and rhythm, no murmurs, no gallops, no rubs, no peripheral edema Gastrointestinal: Soft, no tenderness to palpation, no palpable hepatosplenomegally, bowel sounds positive, no abdominal wall hernias Extremities: No digital cyanosis or clubbing, peripheral pulses palpable and equal over bilateral radial arteries and dorsalis pedis artery, no calf muscle tenderness Psych: Alert, oriented to place, person and time, appropriate affect, intact judgment Patient will be discharged home in stable clinical condition. I met with the mother and the patient today before discharge and discussed the above in details both the patient and his mother verbalized understanding of the above recommendations. The mother indicated that they already made contact with Dr. Alberts at [facility] to evaluate his thoracic ascending aortic aneurysm. Patient was provided resources to follow up with PCP. Prescriptions were sent to patient preferred pharmacy Case discussed with cardiology who cleared the patient for discharge and recommended follow-up with adult congenital heart disease clinic 40 minutes were spent discharging this patient, and more than 50% of the time was spent in counseling the patient and family and in coordinating care. Pertinent Studies: Echocardiogram of the heart showing preserved left ventricular ejection fraction , showed aortic root dilatation of 4.2 cm CAT scan of the abdomen and pelvis showed acute diverticulitis CAT scan of the chest suggested thoracic ascending aortic aneurysm 4.8 cm Patient Condition at Discharge: Stable Plan - Discharge Summary New Discharge Prescriptions: New Aspirin 81 mg PO DAILY chew Levofloxacin [Levaquin] 750 mg PO DAILY #11 tab Metoprolol Tartrate [Lopressor] 25 mg PO BID tab metroNIDAZOLE [Flagyl] 500 mg PO TID #33 tab Nitroglycerin Sl Tabs [Nitrostat] 0.4 mg SUBLINGUAL Q5M PRN tab PRN Reason: Chest Pain Continue Gabapentin [Neurontin] 300 mg PO TID LORazepam [Ativan] 1 mg PO Q4H PRN PRN Reason: Anxiety Discharge Medication List Gabapentin [Neurontin] 300 mg PO TID 11/23/17 [History] LORazepam [Ativan] 1 mg PO Q4H PRN 11/23/17 [History] Aspirin 81 mg PO DAILY chew 11/26/17 [Rx] Levofloxacin [Levaquin] 750 mg PO DAILY #11 tab 11/26/17 [Rx] Metoprolol Tartrate [Lopressor] 25 mg PO BID tab 11/26/17 [Rx] Nitroglycerin Sl Tabs [Nitrostat] 0.4 mg SUBLINGUAL Q5M PRN tab 11/26/17 [Rx] metroNIDAZOLE [Flagyl] 500 mg PO TID #33 tab 11/26/17 [Rx] Follow up Appointment(s)/Referral(s): Aurelio Bautista MD [STAFF PHYSICIAN] - 1 Week Patient Instructions/Handouts: Diverticulitis (GEN), Thoracic Aortic Aneurysm ( DC), Diverticulitis Diet (DC) Activity/Diet/Wound Care/Special Instructions: activity and diet as tolerated Care Plan Goals (MU): follow up with adult congenital heart disease clinic at [facility] consider outpatient colonoscopy after 4 weeks from now avoid smoking, monitor your blood pressure Discharge Disposition: HOME SELF-CARE
[2017-11-27] MEDS ORDERED: LEVOFLOXACIN 750 MG TAB PO SCH (09:00)
== END 2017-11-26 15:51 | disposition home or self-care (01) | DRG 300 ==
LOC: EC 18:50 → 6SEL 11-24 00:29
PROVIDERS: ADMIT Family Medicine; ATTEND Family Medicine
DX: I71.2 Thoracic aortic aneurysm, without rupture (principal); K57.32 Diverticulitis of large intestine without perforation or abscess without bleeding; F32.9 Major depressive disorder, single episode, unspecified; F17.200 Nicotine dependence, unspecified, uncomplicated; F10.10 Alcohol abuse, uncomplicated; I44.0 Atrioventricular block, first degree; I10 Essential (primary) hypertension; Z79.899 Other long term (current) drug therapy; Z88.5 Allergy status to narcotic agent; Z71.6 Tobacco abuse counseling; Z83.3 Family history of diabetes mellitus; Z91.018 Allergy to other foods; Z98.890 Other specified postprocedural states
CPT/HCPCS: 36415; 71275; 74177; 80048; 80053; 80061; 82550; 82553; 83735; 84484; 85025; 85610; 85730; 87040; 93005; 93306; 94760; 96365; 96375; 99285